=== PATIENT | female | born 1950 | race Caucasian/White ===

== ENCOUNTER 2023-04-23 10:11 | Day surgery (SDC) | payer MEDICARE, SELFPAY ==
[~2023-04-23] VITALS: Ht 154.9 cm; Wt 66.2 kg
[2023-04-23 10:20] VITALS: BP 111/55; TEMP 97.7; O2SAT 97
[2023-04-23] MEDS ORDERED: PROZ10CA7 PO (12:00)
[2023-04-23] MEDS ORDERED: TOPA1TAB PO (12:00)
[2023-04-23] MEDS ORDERED: LIPI10TA PO (12:00)
[2023-04-23] MEDS ORDERED: TOPR25TA PO (12:00)
[2023-04-23] MEDS ORDERED: PRIL20TA2 PO (12:00)
[2023-04-23] MEDS ORDERED: PEPC40TA12 PO (12:00)
[2023-04-23] MEDS ORDERED: SERO1TAB2 PO (12:00)
[2023-04-23] MEDS ORDERED: KLON2TAB PO (12:00)
[2023-04-23] MEDS ORDERED: ROPIvacaine 0.5% 30ML VIAL PN ONE (12:15)
[2023-04-23] MEDS ORDERED: PERCOCET 5MG/325MG TAB PO ONE (12:30)
[2023-04-23] MEDS: MIDAZOLAM INJ 2MG/2ML VIAL IV PRN ×2 (14:04→14:05)
[2023-04-23 14:10] VITALS: BP 121/53; TEMP 97.2; O2SAT 94
[2023-04-23] MEDS ORDERED: ceFAZolin 2 GM/D5W 50 ML IV BAG IV ONE (14:47)
[2023-04-23] MEDS ORDERED: fentaNYL 100 MCG/2 ML INJECTION As Ordered ONE (15:51)
[2023-04-23] MEDS ORDERED: ONDANSETRON 4MG 2ML VIAL As Ordered ONE (15:51)
[2023-04-23] MEDS ORDERED: propofoL 200 MG/20 ML VIAL As Ordered ONE (15:51)
[2023-04-23] MEDS ORDERED: LIDOCAINE 2% 100MG/5ML SDV (FOR ANES.) As Ordered ONE (15:51)
[2023-04-23 16:40] VITALS: BP 96/45; TEMP 98.8; O2SAT 94
[2023-04-23 17:10] VITALS: BP 101/51; TEMP 98.8; O2SAT 94
== END 2023-04-23 18:16 | disposition home or self-care (01) ==
LOC: M SDC 10:11 → M MSPAV 10:31 → M SDC 18:16
PROVIDERS: ATTEND Orthopaedic Surgery Hand Surgery
DX: S52.502A Unspecified fracture of the lower end of left radius, initial encounter for closed fracture (principal); X58.XXXA Exposure to other specified factors, initial encounter; Y93.9 Activity, unspecified; Y92.9 Unspecified place or not applicable; Y99.9 Unspecified external cause status; F32.A Depression, unspecified; Z79.899 Other long term (current) drug therapy
CPT/HCPCS: 25607; 76000; C1713; J0690; J1100; J2250; J2405; J2795; J3010

== ENCOUNTER → 2023-05-17 | Outpatient (CLI) | payer MEDICARE ==
[~2023-05-17] MED LIST: CLON-952 PO; LIPI10TA PO; PEPC40TA12 PO; PRIL20TA2 PO; PROZ10CA7 PO; SERO1TAB2 PO; TOPA1TAB PO; TOPR25TA PO
== END ==
LOC: M SOG 09:50
PROVIDERS: ATTEND Orthopaedic Surgery Hand Surgery
DX: S52.502A Unspecified fracture of the lower end of left radius, initial encounter for closed fracture (principal); S52.615A Nondisplaced fracture of left ulna styloid process, initial encounter for closed fracture; X58.XXXA Exposure to other specified factors, initial encounter; Y92.9 Unspecified place or not applicable; Y93.9 Activity, unspecified; Y99.9 Unspecified external cause status

== ENCOUNTER → 2023-06-16 | Outpatient (CLI) | payer MEDICARE | LOC: M SOG 11:06 | PROVIDERS: ATTEND Physician Assistant | DX: M25.632 Stiffness of left wrist, not elsewhere classified (principal) ==